=== PATIENT | female | born 1965 ===

== ENCOUNTER 2017-03-19 09:57 | Day surgery (SDC) | payer MEDICAID ==
[2017-02-23 11:25] VITALS: BMI 25.2
[2017-03-19 11:00] VITALS: O2SAT 100
[2017-03-19] MEDS ORDERED: Lidocaine 1% Inj (20ml) ONE (11:39)
[2017-03-19] MEDS ORDERED: Bupivacaine-Epi 0.25%-1:200,000 PF Inj ONE (11:55)
[2017-03-19] MEDS ORDERED: Lactated Ringer's 1,000 ML IV ONE (13:02)
[2017-03-19] MEDS ORDERED: Midazolam 2 MG/2 ML VIAL ONE (13:03)
[2017-03-19] MEDS ORDERED: Propofol 10 mg/ml Inj (20 ML) ONE (13:03)
[2017-03-19] MEDS: ceFAZolin IV 1 gm in Dextrose 1 GM/50 ML BAG IVPB ONE ×2 (13:10→13:28)
[2017-03-19] MEDS ORDERED: HYDROmorphone 0.5 mg/0.5 ml ISec IVP PRN (15:45)
--- NOTE | 2017-03-19 15:45 | PCM.SURG1 ---
Surgeon's Initial Post Op Note - Surgeon's Notes Surgeon: Dr. Gomez Wardrobe Specialty Worker: Dr. Sun Dee PGY2 Type of Anesthesia: General LMA Pre-Operative Diagnosis: multiple lipomas Operative Findings: see dictation Post-Operative Diagnosis: same Operation Performed: excision of multiple lipomas Specimen/Specimens Removed: 11 lipomas R and LUE Estimated Blood Loss: EBL {In ML}: 50 Blood Products Given: N/A Drains Used: No Drains Post-Op Condition: Good Date of Surgery/Procedure: 03/19/17 Time of Surgery/Procedure: 13:00
[2017-03-19 16:26] VITALS: RESP 18
[2017-03-19 17:35] VITALS: BP 153/87; PULSE 57; TEMP 97
--- NOTE | 2017-03-20 00:41 | OP ---
PROCEDURE DATE: 03/19/2017 PREOPERATIVE DIAGNOSIS: Multiple lipoma of the bilateral upper extremity. POSTOPERATIVE DIAGNOSIS: Multiple lipoma of the bilateral upper extremity, total 11 lipomas. PROCEDURES DONE: 1. Excision of lipoma of the right forearm lateral, 3 x 4 cm size. 2. Excision of lipoma of the right elbow, 2 x 2 cm size. 3. Excision of lipoma of the right forearm medial #1, 3 x 4 cm size 4. Excision of lipoma of the right forearm medial #2, 4 x 2 cm size 5. Excision of lipoma of the right forearm posterior #1, 2 x 2 cm size 6. Excision of lipoma of the right forearm posterior #2, 2 x 2 cm size 7. Excision of lipoma of the left elbow, 3 x 2 cm size 8. Excision of lipoma of the left forearm medial #1, 3 x 4 cm size 9. Excision of lipoma of the left forearm medial #2, 2 x 2 cm size 10. Excision of lipoma of the left forearm medial #3, 2 x 2 cm size 11. Excision of lipoma of the left forearm posterior medial, 3 x 2 cm size SURGEON: Vicente Gomez MD. ASSISTANTS: Michelle Garsia, PGY-2 resident and YEE Bhagat. TYPE OF ANESTHESIA: General endotracheal tube anesthesia. ESTIMATED BLOOD LOSS: Around 50 mL. DRAINS: None. PATHOLOGY: All 11 lipomas were sent separately for the pathology. There was right forearm lateral, right elbow, right forearm medial #1, right forearm medial #2, right forearm posterior #1, right forearm posterior #2, left elbow, left forearm medial #1, left forearm medial #2, left forearm medial #3 and the left forearm posterior medial lipoma. COMPLICATIONS: None. INTRAOPERATIVE FINDINGS: The patient had multiple lipomas of bilateral upper extremity as described above. DESCRIPTION OF PROCEDURE: On intraoperative steps, this is a 52-year-old female who was diagnosed with bilateral upper extremity lipomas. The patient was consented for excision of bilateral upper extremity lipoma. The patient was brought to the OR, placed supine on operating table. After induction of anesthesia, bilateral upper extremity was prepped and draped in the usual sterile fashion. Approximately 6 lipoma were identified on the right side and 5 lipomas were identified on the left side. All the lipomas were marked. First transverse incision was made on the left elbow lipoma, upper and lower flap was created. Lipoma was completely excised and it was sent to the table for pathology. The next incision was made on the left forearm medial lipoma and there were 3 lipomas on separate location. They were all excised after upper and lower flaps were dissected and the hemostasis was achieved. The left forearm posterior medial lipoma was isolated, incision was made, upper and lower flap was created and lipoma was excised. Then the right side, right forearm lateral lipoma was isolated, incision was made, upper and lower flap was created, and the right elbow lipoma was isolated, upper and lower flap was created after incision and lipoma was excised. Right forearm, medial #1 and #2 lipoma were isolated, incision was made, upper and lower flap was created, lipomas were completely excised and it was sent to the table for the pathology. Now the right forearm posterior #1 and #2 lipomas were identified, incision was made and upper and lower flap was created, lipoma was completely excised and it was sent to the table for the pathology. After proper hemostasis, all the wounds were irrigated. All the wounds were closed in 2 layers, subcutaneous with 2-0 Vicryl and skin with 4-0 Monocryl and dry sterile dressing was applied. The patient tolerated the procedure well, Count of the instrument was correct. There was no apparent complication. The patient was extubated in OR and sent to the postanesthesia care unit in stable condition. Vicente Gomez MD [facility]
== END 2017-03-19 18:38 | disposition home or self-care (01) ==
LOC: C.SDS 09:57
PROVIDERS: ATTEND Surgery Surgical Critical Care
DX: D17.22 Benign lipomatous neoplasm of skin and subcutaneous tissue of left arm (principal); D17.21 Benign lipomatous neoplasm of skin and subcutaneous tissue of right arm
CPT/HCPCS: 11406; J0690; J2250; J2704; J3010; J7120

== ENCOUNTER 2017-03-29 06:39 | Day surgery (SDC) | payer MEDICAID ==
[2017-02-23 11:25] VITALS: BMI 25.2
[2017-03-29] MEDS ORDERED: Lidocaine 1% Inj (20ml) ONE ×2 (07:47→08:53)
[2017-03-29] MEDS ORDERED: Bupivacaine HCl 0.5% PF (10 ml) Inj ONE ×2 (07:47→08:53)
[2017-03-29] MEDS ORDERED: Lactated Ringer's 1,000 ML IV ONE (08:15)
[2017-03-29] MEDS ORDERED: Propofol 10 mg/ml Inj (20 ML) ONE (08:19)
[2017-03-29] MEDS ORDERED: Midazolam 2 MG/2 ML VIAL ONE (08:19)
[2017-03-29] MEDS ORDERED: ceFAZolin IV 1 gm in Dextrose 1 GM/50 ML BAG IVPB ONE (08:25)
[2017-03-29] MEDS ORDERED: ePHEDrine 50 mg/ml Inj ONE (08:45)
[2017-03-29] MEDS ORDERED: Dexamethasone 4 mg/1 ml ONE (08:53)
[2017-03-29] MEDS ORDERED: HYDROmorphone 0.5 mg/0.5 ml ISec IVP PRN (09:05)
--- NOTE | 2017-03-29 09:06 | PCM.SURG1 ---
Surgeon's Initial Post Op Note - Surgeon's Notes Surgeon: Dr. Miguelito Arias, DPM Circular Knitter Helper: Kennedy Bell PGY2 Type of Anesthesia: IV Sedation, Local (10ml of 1:1 mixture-1% lidocaine plain to 0.5% marcaine plain) Anesthesia Administered By: Dr. Ghazala Benavides Pre-Operative Diagnosis: Left foot 1) plantarflexed 2nd metatarsal 2) Plantar soft tissue mass Operative Findings: See dictation. I: 2mL 1:1 mixture of dexamethasone 4mg/mL to 0.5% marcaine plain. S: Soft tissue cyst measuring 1 x 1.2 x 0.5cm Post-Operative Diagnosis: 1) Left foot plantar soft tissue mass Operation Performed: Left foot excision of soft tissue mass Specimen/Specimens Removed: Lef foot Soft tissue cyst Estimated Blood Loss: EBL {In ML}: 0 Blood Products Given: N/A Drains Used: No Drains Post-Op Condition: Good Date of Surgery/Procedure: 03/29/17 Time of Surgery/Procedure: 09:00
[2017-03-29] MEDS ORDERED: Oxycodone/Acetaminophen 5/325 mg Tab PO PRN (09:10)
[2017-03-29 10:36] VITALS: O2SAT 100
[2017-03-29 11:57] VITALS: BP 100/57; PULSE 61; RESP 15; TEMP 97.6
--- NOTE | 2017-03-30 04:15 | OP ---
PROCEDURE DATE: 03/29/2017 PREOPERATIVE DIAGNOSES: 1. Left foot, plantarflexed second metatarsal. 2. Left foot, plantar soft tissue mass. POSTOPERATIVE DIAGNOSIS: Left foot, plantar soft tissue mass. PROCEDURE PERFORMED: Left foot, excision of soft tissue mass. PRIMARY SURGEON: Miguelito Arias DPM SUPERVISOR SEWER SYSTEM: Dahiana Bell DPM, PGY-2 ANESTHESIA TYPE: IV sedation with local. ANESTHESIOLOGIST: Dr. Ghazala Benavides SPECIMEN: Left foot, soft tissue cyst. INDICATIONS: The patient is a 52-year-old female with the above-stated diagnosis. The patient has exhausted all conservative treatment options and is now in need of surgical intervention. The patient signed the surgical consent after careful explanation of risks, benefits, complications, potential alternatives to proposed procedure. No guarantees were either given nor employed. All the patient's questions were answered to her satisfaction. PREPARATION: The patient's n.p.o. status was confirmed prior to bringing the patient to the operating room. The patient was brought into the operating room and placed on the operating room table in a supine position. A well-padded pneumatic tourniquet was applied in the supramalleolar position to the left ankle and inflated 250 mmHg to be insufflated and the procedure began. Once IV sedation was confirmed to have been achieved, the patient then received a total of 10 mL of a 1:1 mixture of 1% lidocaine plain to 0.5% Marcaine plain in a local block type fashion to the left foot. Once local anesthesia was confirmed to have been achieved, the patient's left foot was then prepped and draped in the usual sterile manner. Tourniquet was inflated and the procedure began. DESCRIPTION OF THE PROCEDURE: Left foot, excision of soft tissue mass: Attention was then directed to the plantar aspect of the patient's left foot plantar to the head of the second metatarsal. A well circumscribed delta nodule was noted. At this time, a semi-elliptical incision was made overlying the soft tissue mass using a number 15 blade. Total incision length was 1.5 cm. This incision was then carried down to the level of subcutaneous tissue with care being taken to avoid all vital neurovascular structures. All bleeders were cauterized and ligated as needed. Prior to excision, overlying hyperkeratotic tissue was tiered away to expose more normalized epidermal tissue layer. At this time, upon arriving at subcutaneous tissue layer, a ganglion and ganglionous sac was noted. Care being taken once dissection was performed using Iris scissor. While attempting to localizing to find mass, the cystic sac was partially ruptured exposing caseous content. Using combination of sharp and blunt dissection, soft tissue mass sac, all contents, and stalk were excised and passing off the field to be sent to pathology for proper identification. Total size of soft tissue mass excised was 1.2 cm x 1 cm with a depth of 0.4 cm. At this time, attention was then directed to the plantar incision site void, which was flushed with copious amount of sterile saline. Incision site was then sterilely explored to confirm that there was no tracking, undermining, or secondary lobulated cystic mass, none were noted. Incision site was once again flushed with copious amounts of sterile saline. Skin was re-approximated full thickness in a simple suture type fashion, fully reapproximating of incision site using 3-0 nylon. Incision site was then dressed with Xeroform gauze. The patient received a total of 2 mL of 1:1 mixture of dexamethasone 4 mg per mL to 0.5% Marcaine plain along the surgical site. Incision site was then dressed with Xeroform gauze, 4 x 4 gauze, Kerlix, Prudencio, Coban and Herb. POSTOPERATIVE CONDITION: The patient tolerated the anesthesia and procedure well and was escorted to the recovery room with vital signs stable and neurovascular status intact to the left foot. The patient will follow up with Dr. Arias in his office on an outpatient basis. Dahiana Bell DPM Miguelito Arias DPM [facility]
== END 2017-03-29 11:25 | disposition home or self-care (01) ==
LOC: C.SDS 06:39
PROVIDERS: ATTEND Podiatrist
DX: L72.0 Epidermal cyst (principal)
CPT/HCPCS: 28043; 88305; J0690; J1100; J2250; J2704; J3010; J7120